=== PATIENT | male | born 1980 | race Caucasian/White ===

== ENCOUNTER 2018-08-27 20:17 | Emergency (ER) | payer BC | END 2018-08-27 21:36 | disposition home or self-care (01) | LOC: FTE 20:17 | DX: K64.4 Residual hemorrhoidal skin tags (principal); F17.210 Nicotine dependence, cigarettes, uncomplicated | CPT/HCPCS: 99284 ==

== ENCOUNTER 2018-09-04 14:33 | Emergency (ER) | payer BC ==
[2018-09-04] MEDS: IBUPROFEN 600 MG TAB PO (18:34)
== END 2018-09-04 19:34 | disposition home or self-care (01) ==
LOC: FTE 14:33
DX: R19.09 Other intra-abdominal and pelvic swelling, mass and lump (principal); J45.909 Unspecified asthma, uncomplicated; Z87.891 Personal history of nicotine dependence
CPT/HCPCS: 76536; 99284-25